=== PATIENT | male | born 1950 | race Caucasian/White ===

== ENCOUNTER 2017-01-27 08:02 | Day surgery (SDC) | payer MEDICARE ==
[~2017-01-27] VITALS: Ht 182.9 cm; Wt 114.2 kg
[2017-01-27] MEDS ORDERED: IOHEXOL 350 MG/ML 100 ML BTL (for Cath Lab) OTHER ONE (08:03)
[2017-01-27] MEDS ORDERED: NS 1000P @30 MLS/HR (KVO) IV SCH (08:45)
[2017-01-27] MEDS ORDERED: ASPIRIN 325 MG TAB PO SCH (08:45)
[2017-01-27 08:55] VITALS: BP 146/80; PULSE 53; RESP 18; TEMP 98; O2SAT 97
[2017-01-27] MEDS ORDERED: METO25TA3 PO (09:03)
[2017-01-27] MEDS ORDERED: AMLO2.5T PO (09:03)
[2017-01-27] MEDS ORDERED: ASPI-516 CHEW (09:03)
[2017-01-27 09:07] LABS: AUTOMATED NEUTROPHIL # 3.5 TH/MM3 (1.8-7.7); BASOPHIL % 0.7 % (0.0-2.0); EOSINOPHIL # 0.1 TH/MM3 (0-0.4); EOSINOPHIL % 2.4 % (0.0-4.0); HEMATOCRIT 44.4 % (39.0-51.0); HEMO FLAGS DIFF FINAL; LYMPH % 30.8 % (9.0-44.0); LYMPHOCYTE # 1.8 TH/MM3 (1.0-4.8); MEAN CELL VOLUME 90.3 FL (80.0-100.0); MEAN CORPUSCULAR HGB CONC 34.3 % (32.0-36.0); MONO % 8.3 % (0.0-8.0); NEUT % 57.8 % (16.0-70.0); PLATELET COUNT 147 TH/MM3 (150-450); RED BLOOD COUNT 4.92 MIL/MM3 (4.50-5.90); RED CELL DISTRIBUTION WIDTH 13.9 % (11.6-17.2)
[2017-01-27 09:17] LABS: APTT (PATIENT) 25.4 SEC (24.3-30.1); PROTHROMBIN TIME - PATIENT 10.5 SEC (9.8-11.6)
[2017-01-27 09:19] LABS: BICARBONATE 27.1 MEQ/L (21.0-32.0); POTASSIUM 4.2 MEQ/L (3.5-5.1)
[2017-01-27] MEDS ORDERED: HEPARIN-NS/PF INJ 1,000 ML ONE (09:40)
[2017-01-27] MEDS ORDERED: MIDAZOLAM HCL 2 MG/2 ML VIAL ONE (09:41)
[2017-01-27] MEDS ORDERED: HEPARIN SODIUM - IV 10,000 UNITS/10 ML VIAL ONE (09:41)
[2017-01-27] MEDS ORDERED: NITROGLYCERIN INJ 5 ML ONE (09:41)
[2017-01-27] MEDS ORDERED: VERAPAMIL HCL 5 MG/2 ML VIAL ONE (09:41)
--- NOTE | 2017-01-27 10:33 | MA ---
cc: FLORENTIN COKER M.D. ANUP WATERS DATE 01/27/2017 PROCEDURE PERFORMED Left heart catheterization, left ventriculography, coronary angiography, right radial artery access. 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 He received 2 mg of IV Versed for sedation. Using 1% lidocaine for local anesthesia, a Terumo Slender Sheath was easily inserted in the right radial artery. A [place] catheter was then used to image both coronary arteries as well as the left ventricle on pullback. The sheath was removed and a Terumo band placed. A standard cocktail of heparin and nitroglycerin was administered with no for verapamil because of bradycardia. There were no complications. FINDINGS I. HEMODYNAMICS Aortic pressure is 108/64 with a mean of 83. Left ventricular pressure is 117/7 with an end-diastolic pressure of 8. During pullback from the left ventricle to the aorta there was no gradient measured. II. LEFT VENTRICULOGRAPHY Estimated ejection fraction is 60%. No wall motion abnormalities. III. CORONARY ANGIOGRAPHY 1. The left main coronary artery appears normal. It bifurcates into the LAD and circumflex vessels. 2. Left anterior descending artery has about 20% smooth proximal disease, a major diagonal branch that has about 40% proximal narrowing. The remainder of the LAD appears normal and does wrap around the apex. 3. The circumflex artery has about 35% ostial and proximal disease. It is smooth and the remainder of the circumflex artery appears normal. The obtuse marginal branch appears normal. 4. The right coronary is dominant. The vessel has about 10% proximal and mid irregularities. There are no high-grade stenoses. CONCLUSIONS 1. Normal hemodynamics. 2. Normal ventricular function. 3. Only mild coronary artery disease. RECOMMENDATIONS Medical management. Florentin Coker MD VEW/SSB /10:15 AM /10:22 AM
[2017-01-27] MEDS ORDERED: MISC INFORMATION XX ONE (10:45)
[2017-01-27] MEDS ORDERED: BACITRACIN OINT 0.9 GM PKT TOP ONE (11:00)
[2017-01-27] MEDS ORDERED: SODIUM CHLOR 0.9% 1000 ML INJ 1,000 ML IV SCH (11:00)
--- NOTE | 2017-01-27 16:28 | EKG ---
Date Performed: 01/27/2017 Time Performed: 09:06:42 PTAGE: 66 years EKG: Sinus bradycardia. Normal ECG except for rate NO PREVIOUS TRACING DOCTOR: Ansley Greene Interpretating Date/Time 01/27/2017 16:26:29
== END 2017-01-27 13:21 | disposition home or self-care (01) ==
LOC: HDIC 08:02 → HCAT 08:02
PROVIDERS: ATTEND Internal Medicine Cardiovascular Disease
DX: I25.10 Atherosclerotic heart disease of native coronary artery without angina pectoris (principal); I10 Essential (primary) hypertension; E78.5 Hyperlipidemia, unspecified; E66.9 Obesity, unspecified; Z68.34 Body mass index [BMI] 34.0-34.9, adult; Z01.818 Encounter for other preprocedural examination; R06.9 Unspecified abnormalities of breathing; Z01.810 Encounter for preprocedural cardiovascular examination
CPT/HCPCS: 80048; 85025; 85610; 85730; 93005; 93458; 99152; 99153; C1769; C1893; J1644; J2250; Q9967